=== PATIENT | male | born 1965 | race African-American/Black ===

== ENCOUNTER 2016-11-23 20:10 | Emergency (ER) | payer SELFPAY ==
[~2016-11-23] VITALS: Ht 180.3 cm; Wt 80.0 kg
[2016-11-23 20:54] VITALS: BP 113/78
== END 2016-11-24 00:21 | disposition home or self-care (01) ==
LOC: EMS 20:11
DX: S00.03XA Contusion of scalp, initial encounter (principal); W22.8XXA Striking against or struck by other objects, initial encounter; Y93.89 Activity, other specified; Y92.89 Other specified places as the place of occurrence of the external cause; Y99.8 Other external cause status
CPT/HCPCS: 99281

== ENCOUNTER 2023-05-17 09:07 | Emergency (ER) | payer OTHER ==
[~2023-05-17] VITALS: Ht 180.3 cm; Wt 70.5 kg
[2023-05-17 11:19] VITALS: BP 130/64; PULSE 82; RESP 18; TEMP 98.6
[2023-05-17] MEDS ORDERED: AMOX500C2 PO (11:46)
[2023-05-17] MEDS ORDERED: PHENYLEPHRINE HCL 1% 15 ML NASAL SPRAY NASAL ONE (21:00)
== END 2023-05-17 12:09 | disposition home or self-care (01) ==
LOC: EMS 09:19
DX: H66.92 Otitis media, unspecified, left ear (principal)
CPT/HCPCS: 99283; Z7502

== ENCOUNTER 2023-07-02 07:18 | Emergency (ER) | payer OTHER ==
[~2023-07-02] VITALS: Ht 180.3 cm; Wt 81.8 kg
[~2023-07-02 07:18] MED LIST: AMOX500C2 PO
[2023-07-02 07:26] VITALS: BP 127/79; PULSE 91; RESP 16; TEMP 97.9
[2023-07-02] MEDS ORDERED: PERTUSS(ACELL),DIPH,TET VAC/PF 0.5 ML SYRINGE IM. ONE (08:00)
[2023-07-02] MEDS ORDERED: BACITRACIN 0.9 GM PACKET OINTMENT TP ONE (08:00)
[2023-07-02] MEDS ORDERED: ACETAMINOPHEN 500 MG TABLET PO ONE (08:00)
[2023-07-02] MEDS ORDERED: DOXYCYCLINE HYCLATE 100 MG TABLET PO ONE (08:00)
[2023-07-02] MEDS ORDERED: BACI28.410 TP (08:17)
[2023-07-02] MEDS ORDERED: DOXY-354 PO (08:17)
== END 2023-07-02 08:36 | disposition home or self-care (01) ==
LOC: EMS 07:19
DX: S61.412A Laceration without foreign body of left hand, initial encounter (principal); X58.XXXA Exposure to other specified factors, initial encounter; Y93.89 Activity, other specified; Y92.89 Other specified places as the place of occurrence of the external cause; Y99.8 Other external cause status
CPT/HCPCS: 90471; 90715; 99284